=== PATIENT | male | born 1980 | race Caucasian/White ===

== ENCOUNTER 2017-10-31 12:49 | Inpatient (IN) | payer SELFPAY ==
[2017-10-31 14:00] LABS: Hemoglobin 13.8 g/dL (14.0-18.0); Mean Corpuscular HGB CONC 33.5 g/dL (32.0-36.0); Mean Corpuscular Hemoglobin 29.4 pg (27.0-31.0); Mean Corpuscular Volume 87.9 fL (78.0-98.0); Mean Platelet Volume 9.8 fL (7.4-10.4); Platelet Count 177 thou/uL (130-400); RBC Distribution Width 12.7 % (11.5-14.5); Red Blood Cell (RBC) Count 4.69 mill/uL (4.70-6.10); White Blood Cell (WBC) Count 13.5 thou/uL (4.8-10.8)
[2017-10-31] MEDS ORDERED: Ondansetron HCl/PF 4 MG/2 ML Vial ONE (14:18)
[2017-10-31] MEDS ORDERED: cefTRIAXone\\ROCEPHIN 2 GM VIAL ONE (14:18)
[2017-10-31] MEDS ORDERED: Morphine 4 MG/ML VIAL ONE (14:19)
[2017-10-31 14:22] LABS: Band 30 % (5-11); Dohle Bodies SLIGHT; Lymphocytes 3 % (21-51); MDiff Complete? YES; Metamyelocyte 2 % (0-0); Monocytes 1 % (0-10); Neutrophil 61 % (42-75); PLT Morphology Comment Appears Adequate; RBC Morphology Normal; Reactive Lymphocytes 1 % (0-10); Vacuoles SLIGHT
[2017-10-31 14:23] LABS: ALT (SGPT) 24 U/L (8-55); AST (SGOT) 53 U/L (5-34); Albumin 3.6 g/dL (3.5-5.0); Alkaline Phosphatase 61 U/L (40-150); Anion Gap 17 mmol/L (10-20); BUN (Urea Nitrogen) 19 mg/dL (8.9-20.6); Bilirubin, Total 0.7 mg/dL (0.2-1.2); CK (CPK) 713 U/L (30-200); Calc. Creatinine Clearance 0 mL/min (70-130); Carbon Dioxide 24 mmol/L (22-29); Chloride 89 mmol/L (98-107); Estimated GFR-MDRD 72; Globulin 3.5 g/dL (2.4-3.5); Glucose 112 mg/dL (70-105); Potassium 3.6 mmol/L (3.5-5.1); Protein, Total 7.1 g/dL (6.0-8.3); Sodium 126 mmol/L (136-145)
[2017-10-31] MEDS ORDERED: Nitroglycerin 2% Ointment 1 INCH/1 GM Packet ONE (14:23)
[2017-10-31] MEDS ORDERED: Nitroglycerin 0.4 MG TAB (25 Tab Bottle) ONE (14:23)
[2017-10-31 14:45] LABS: CKMB 1.7 ng/mL (0-6.6); Troponin I 0.035 ng/mL (< 0.028)
[2017-10-31 15:03] LABS: Bilirubin Small (Negative); Blood, Urine Large (Negative); Clarity CLOUDY (Clear); Glucose, Urine (Dipstick) Negative (Negative); Leukocyte Negative (Negative); Nitrite Negative (Negative); Protein, Urine (Dipstick) 300 mg/dL (Neg-Trace); Specific Gravity, Urine 1.023 (1.002-1.036)
[2017-10-31 15:05] LABS: Bacteria/HPF None Seen HPF (None Seen)
[2017-10-31 15:07] LABS: Pathc Cast-AUWi Flag 6.25 (0-2.49)
[2017-10-31 15:18] LABS: Hyaline Casts/LPF 0-3 HYALINE CAST LPF (0-3 Hyaline); Other Casts/LPF None Seen LPF (0-3 Hyaline); Transitional Epithelial 0-3 HPF (0-3)
[2017-10-31] MEDS ORDERED: Senokot 8.6 MG TAB PO PRN (15:45)
[2017-10-31] MEDS ORDERED: Acetaminophen 325 MG TAB PO PRN (15:45)
[2017-10-31] MEDS ORDERED: Guaifenesin DM 100-10/5 ML UDCUP PO PRN (15:45)
[2017-10-31] MEDS ORDERED: Azithromycin 500 MG VIAL ONE (15:45)
[2017-10-31 15:47] LABS: Amphetamine Not Detected (NotDetected); Barbiturates Screen Not Detected (NotDetected); Benzodiazepine Screen Not Detected (NotDetected); Cocaine Metabolite Screen Not Detected (NotDetected); Medtox Control Line Valid? VALID (VALID); Medtox Reader # READER 4; Methadone Not Detected (NotDetected); Methamphetamine Not Detected (NotDetected); Opiate Screen Detected (NotDetected); Oxycodone Screen Not Detected (NotDetected); Phencyclidine (PCP) Not Detected (NotDetected); THC/Cannabinoid Screen Detected (NotDetected); Tricyclic Screen Not Detected (NotDetected)
[2017-10-31] MEDS: Sodium Chloride 0.9% 1,000 ML IV SCH (17:23)
[2017-10-31 17:37] LABS: Troponin I 0.038 ng/mL (< 0.028)
--- NOTE | 2017-10-31 18:06 | RAD ---
TWO VIEWS OF THE CHEST: COMPARISON: None. HISTORY: Cough for 4 days and dyspnea. FINDINGS: Two views of the chest show consolidation in the left lower lobe consistent with left lower lobe pneu monia. No pleural effusion is seen. IMPRESSION: Left lower lobe pneumonia. POS: [facility]
[2017-10-31] MEDS ORDERED: Morphine 4 MG/ML VIAL SLOW IVP PRN (18:45)
--- NOTE | 2017-10-31 19:57 | HP ---
REASON FOR ADMISSION: Sepsis, left lung pneumonia. HISTORY OF PRESENT ILLNESS: The patient gives history of not feeling well from the last 4 days. He has also been having intractable vomiting from last 3 days and has not been able to keep anything michelle n. He felt very drained out and could not even get up this afternoon. His father finally brought gayle messina to the emergency room. The patient has been thinking he has had flu and was taking Tylenol cold an d flu tablets. He has had dry cough, but no expectoration. The patient started to have left-sided c hest pain which was worse with coughing spells. He had a temperature of 104 at home. PAST MEDICAL/SURGICAL HISTORY: Has had right wrist reconstructive surgery done. CURRENT MEDICATIONS: None. ALLERGIES: IODINE, SHELLFISH. PERSONAL HISTORY: Smokes one pack a day and has been doing so for the last 15 years. Occasional trevor gold, does not abuse alcohol. 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 FAMILY HISTORY: The patient was adopted and is not in touch with his biological mom. He does not kn ow about his biological father. CODE STATUS: FULL. REVIEW OF SYSTEMS: The following complete review of systems was negative, unless otherwise mentioned in the HPI or below: Constitutional: Weight loss or gain, ability to conduct usual activities. Sk in: Rash, itching. Eyes: Double vision, pain. ENT/Mouth: Nose bleeding, neck stiffness, pain, te nderness. Cardiovascular: Palpitations, dyspnea on exertion, orthopnea. Respiratory: Shortness of breath, wheezing, cough, hemoptysis, fever or night sweats. Gastrointestinal: Poor appetite, abdom inal pain, heartburn, nausea, vomiting, constipation, or diarrhea. Genitourinary: Urgency, frequenc y, dysuria, nocturia. Musculoskeletal: Pain, swelling. Neurologic/Psychiatric: Anxiety, depressio n. Allergy/Immunologic: Skin rash, bleeding tendency. PHYSICAL EXAMINATION: GENERAL: The patient is a 36-year-old male who is currently not in any acute distress. VITAL SIGNS: Blood pressure 118/70, pulse 120 per minute, respiratory rate is 22 per minute, tempera ture 99.3 degrees Fahrenheit, saturating 96% on room air. NECK: Supple, no elevated JVD. HEENT: Extraocular muscles intact. Pupils reacting to light. Oral cavity mucous membranes are dry. No exudates or congestion. CARDIOVASCULAR: S1, S2 heard. Regular rhythm. RESPIRATORY: Air entry 1+ bilateral. Scattered rales in the infrascapular area on the left. No whe ezes. ABDOMEN: Soft, bowel sounds heard. No tenderness, rigidity or guarding. EXTREMITIES: No peripheral edema or calf tenderness. VASCULAR SYSTEM: Peripheral pulses 1+ bilateral, no ischemic ulcerations or gangrene. CENTRAL NERVOUS SYSTEM: No gross focal deficits noted. Patient is alert, awake, oriented well. PSYCHIATRIC: The patient's mood is a bit anxious. No hallucinations or delusions. LABORATORY AND X-RAY FINDINGS: Chest x-ray done shows left lung pneumonia by my review. UA shows la rge blood, likely due to rhabdomyolysis. CK levels are 713. Troponin I 0.03, CK-MB 1.7, sodium 126, chloride 89, BUN 19, creatinine 1.1. Lactic acid is 2. White count of 13, H and H 13 and 41. Seru m glucose is 112. AST 53, ALT 24, alkaline phosphatase 61, total bilirubin is 0.7. EKG done shows s inus tachycardia at 109 beats per minute, nonspecific ST-T wave changes. There is incomplete RBBB se en. CLINICAL IMPRESSION AND PLAN: The patient will be admitted to telemetry for sepsis, left lung pneumo nuha, demand ischemia and hyponatremia likely due to moderate dehydration. The patient will be on nor mal saline at 100 mL per hour. He will be on Levaquin 750 mg IV daily. Blood and sputum cultures wi ll be obtained. He will be on a small dose of aspirin as a precaution. Likely his indeterminate tro ponin is due to his demand ischemia from left lung pneumonia. Echo with 2D Doppler will be obtained for left ventricular function.
--- NOTE | 2017-10-31 20:11 | CON ---
DATE OF CONSULTATION: 10/31/2017 REASON FOR CONSULTATION: Abnormal EKG and chest pain. HISTORY OF PRESENT ILLNESS: Mr. Boo is a 36-year-old gentleman, who recently presented with a f ever of 104, cough and chest pain. Chest pain began on . It has been fairly constant and wo rse with deep breath. It is also worse with cough. It is dull in nature. He was found to have cons olidation on chest x-ray consistent with pneumonia. He had a right bundle branch block with ST segme nt elevation noted in V3 only. No reciprocal changes present. I was consulted for questionable acut e myocardial infarction. PAST MEDICAL HISTORY: None. MEDICATIONS: None. ALLERGIES: None. SOCIAL HISTORY: Positive tobacco use. REVIEW OF SYSTEMS: Ten- point review of systems is reviewed and as above, otherwise negative. PHYSICAL EXAMINATION: GENERAL: Patient is a pleasant male who is in no acute distress. The patient appears his stated age . VITAL SIGNS: Blood pressure 110/70, pulse 98, respirations 20. NEUROLOGIC: The patient is alert and oriented times 3 with no focal neurologic deficits. HEENT: Sclerae without icterus. Mouth has moist mucous membranes with normal pallor. NECK: No JVD. Carotid upstroke brisk. No bruits bilaterally. LUNGS: Clear to auscultation with unlabored respirations. BACK: No scoliosis or kyphosis. CARDIAC: Regular rate and rhythm with normal S1 and S2. No S3 or S4 noted. No significant rubs, mu rmurs, thrills, or gallops noted throughout the precordium. PMI is not displaced. There is no corina ternal heave. ABDOMEN: Soft, nontender, nondistended. No peritoneal signs present. No hepatosplenomegaly. No ab normal striae. EXTREMITIES: 2+ femoral and 2+ dorsalis pedis pulses. No cyanosis, clubbing, or edema. SKIN: No gross abnormalities. IMAGING: EKG shows normal sinus rhythm with right bundle branch block and ST segment elevation consistent with acute myocardial infarction. LABORATORY DATA: Troponin 0.035 with a negative MB. IMPRESSION: 1. Chest pain. 2. Abnormal EKG. 3. Pneumonia. RECOMMENDATIONS: Mr. Boo's symptoms are suggestive of pleuritic pain from recent pneumonia. Hi s EKG is not consistent with acute myocardial infarction. We would recommend antibiotic therapy. At this point, we would recommend transfer to medical. No further recommendation from a CV standpoint.
[2017-10-31 20:17] LABS: Troponin I 0.082 ng/mL (< 0.028)
[2017-10-31] MEDS: Famotidine 20 MG TAB PO SCH (20:56)
[2017-11-01 02:59] LABS: Legionella Urinary Ag POSITIVE (Negative); Strep pneumo Urine Ag NEGATIVE (NEGATIVE)
[2017-11-01] MEDS: Sodium Chloride 0.9% 1,000 ML IV SCH ×2 (05:27→18:55)
[2017-11-01 05:48] LABS: Anion Gap 13 mmol/L (10-20); BUN (Urea Nitrogen) 15 mg/dL (8.9-20.6); Calc. Creatinine Clearance 78 mL/min (70-130); Calcium 8.4 mg/dL (7.8-10.44); Carbon Dioxide 23 mmol/L (22-29); Chloride 92 mmol/L (98-107); Estimated GFR-MDRD 85; Glucose 101 mg/dL (70-105); Potassium 3.4 mmol/L (3.5-5.1); Sodium 125 mmol/L (136-145)
[2017-11-01 06:26] LABS: Band 16 % (5-11); Hypochromia SLIGHT = 6-15 cells (100X) (0-5/hpf); Lymphocytes 5 % (21-51); MDiff Complete? YES; Mean Corpuscular HGB CONC 32.7 g/dL (32.0-36.0); Mean Corpuscular Hemoglobin 28.8 pg (27.0-31.0); Mean Corpuscular Volume 88.1 fL (78.0-98.0); Mean Platelet Volume 9.5 fL (7.4-10.4); Monocytes 1 % (0-10); Neutrophil 78 % (42-75); PLT Morphology Comment Appears Adequate; Platelet Count 188 thou/uL (130-400); RBC Distribution Width 12.6 % (11.5-14.5); Red Blood Cell (RBC) Count 4.15 mill/uL (4.70-6.10); White Blood Cell (WBC) Count 11.5 thou/uL (4.8-10.8)
[2017-11-01 08:11] LABS: HIV (1/2) Antibody/Antigen Non-Reactive (NonReactive); HIV 1/2 INDEX 0.05 S/CO (<1.00)
--- NOTE | 2017-11-01 09:03 | CT ---
CT OF THE THORAX WITHOUT IV CONTRAST: INDICATION: Flu-like symptoms and cough. COMPARISON: Chest radiograph dated 10/31/17. FINDINGS: There is marked consolidation of the left lower lobe. There are patchy airspace opacities within both upper lobes as well as portions of the lingula and ri ght middle lobe. No pneumothorax is evident. Lack of IV contrast limits evaluation for adenopathy. Visualized upper abdomen is unremarkable. No definite acute osseous abnormality is evident. IMPRESSION: Findings of multifocal pneumonia. Recommend radiographic followup to resolution. POS: [facility]
[2017-11-01] MEDS: Famotidine 20 MG TAB PO SCH ×2 (09:08→21:03)
[2017-11-01] MEDS: Enoxaparin Sodium 40 MG/0.4 ML SYRINGE SC SCH (09:08)
[2017-11-01 10:03] VITALS: BMI 17.4
--- NOTE | 2017-11-01 10:07 | PDOC.PN ---
- Subjective Encounter Start Date: 11/01/17 Encounter Start Time: 08:45 Subjective: breathing better -: no chest pain or palp - Objective Resuscitation Status: Resuscitation Status FULL:Full Resuscitation MAR Reviewed: Yes Vital Signs & Weight: Vital Signs (12 hours) Temp Pulse Resp BP Pulse Ox 11/01/17 08:00 100.0 F H 105 H 18 108/62 95 11/01/17 06:35 123 H 18 96 11/01/17 05:47 97 11/01/17 04:00 99.3 F 112 H 23 H 112/60 94 L 10/31/17 23:13 98 Weight Admit Weight 126 lb 3.2 oz Weight 118 lb I&O: 10/31/17 11/01/17 11/02/17 06:59 06:59 06:59 Intake Total 1666 Output Total 500 Balance 1166 Result Diagrams: 11/01/17 05:09 11/01/17 05:09 Phys Exam - Physical Examination HEENT: PERRLA, moist MMs Neck: no JVD, supple Respiratory: no wheezing rales+ Cardiovascular: RRR, no significant murmur Gastrointestinal: soft, no distention, positive bowel sounds Musculoskeletal: no edema, pulses present Neurological: non-focal, moves all 4 limbs Psychiatric: normal affect, A&O x 3 Dx/Plan (1) PNA (pneumonia) Code(s): J18.9 - PNEUMONIA, UNSPECIFIED ORGANISM Status: Acute Comment: sec to legionella (2) Sepsis Code(s): A41.9 - SEPSIS, UNSPECIFIED ORGANISM Status: Acute (3) Demand ischemia of myocardium Code(s): I24.8 - OTHER FORMS OF ACUTE ISCHEMIC HEART DISEASE Status: Acute (4) Hyponatremia Code(s): E87.1 - HYPO-OSMOLALITY AND HYPONATREMIA Status: Acute (5) Tobacco abuse Code(s): Z72.0 - TOBACCO USE Status: Chronic - Plan is on levaquin, nebs -: will add steroids if work of breathing increases -: aspirin, 2nd liter of iv fluid is running and dc after that -: may tx to medical floor -: echo * . Review of Systems - Medications/Allergies Allergies/Adverse Reactions: Allergies Allergy/AdvReac Type Severity Reaction Status Date / Time iodine Allergy Verified 10/31/17 18:29 Medications: Current Medications Acetaminophen (Tylenol) 650 mg PO Q4H PRN PRN Reason: Headache/Fever or Pain Albuterol/Ipratropium (Duoneb) 3 ml NEB [id number] [facility] Last Admin: 11/01/17 06:35 Dose: 3 ml Aspirin (Aspirin Chewable) 81 mg PO DAILY [facility] Last Admin: 11/01/17 09:04 Dose: 81 mg Enoxaparin Sodium (Lovenox) 40 mg SC 0900 [facility] Last Admin: 11/01/17 09:08 Dose: 40 mg Famotidine (Pepcid) 20 mg PO BID [facility] Last Admin: 11/01/17 09:08 Dose: 20 mg Guaifenesin/Dextromethorphan (Robitussin Dm) 15 ml PO Q4H PRN PRN Reason: Cough Levofloxacin 750 mg/ Device 150 mls @ 100 mls/hr IVPB 1630 [facility] Last Admin: 10/31/17 17:23 Dose: 150 mls Sodium Chloride (Normal Saline 0.9%) 1,000 mls @ 100 mls/hr IV .Q10H [facility] Stop: 11/01/17 21:44 Last Admin: 11/01/17 05:27 Dose: 1,000 mls Morphine Sulfate (Morphine) 2 mg SLOW IVP Q6H PRN PRN Reason: Moderate to Severe Pain (6-10) Last Admin: 10/31/17 19:02 Dose: 2 mg Senna (Senokot) 2 tab PO HSPRN PRN PRN Reason: Constipation Sodium Chloride (Flush - Normal Saline) 10 ml IVF Q12HR [facility] Last Admin: 11/01/17 09:09 Dose: Not Given Sodium Chloride (Flush - Normal Saline) 10 ml IVF PRN PRN PRN Reason: Saline Flush
[2017-11-01] MEDS ORDERED: Melatonin 3 MG TAB PO PRN (20:05)
--- NOTE | 2017-11-01 21:48 | CON ---
DATE OF CONSULTATION: 11/01/2017 HISTORY OF PRESENT ILLNESS: Mr. Boo is 36-year-old male who started feeling poorly, thinking he had the flu last week. Apparently, he has been losing weight, having vomiting as well. He subsequently was brought to the emergency room by his father. He was admitted after chest radiograph was found to be abnormal. It has been healthy prior to this. He has a history of an orthopedic surgery on his right wrist. SOCIAL HISTORY: He is pack a day smoker, says he infrequently uses marijuana. ALLERGIES: Reports IODINE allergies. FAMILY HISTORY: Unknown. He is adopted. REVIEW OF SYSTEMS: Ten-point, otherwise negative. PHYSICAL EXAMINATION: GENERAL: He says he is feeling much better. VITAL SIGNS: His temperature is 100, heart rate 105, respiratory rate is 18, oximetry is 95 on 3 lit ers, blood pressure 108/62. LUNGS: Remarkable for tubular breath sounds over his left posterior hemithorax. HEAD AND NECK: Exam is otherwise unremarkable. HEART: Regular rhythm, no S3. ABDOMEN: Soft and nontender. EXTREMITIES: Without clubbing, cyanosis, or edema. LABORATORY DATA: Blood cultures are negative. White count 11.5, hemoglobin 12.0. He has 16% bands today, 30% bands yesterday. He had a legionella positive antigen in his urine. IMPRESSION: Pneumonia? possibly legionella. PLAN: Continue with high dose Levaquin, increase his activity. I will be happy to follow with the o ther physician's caring for him. I reviewed his chest radiograph. He does have patchy bilateral inf iltrates consistent with an atypical pneumonia. He had a chest CT done that really did not add much to this.
[2017-11-02 07:53] VITALS: TEMP 98.9
[2017-11-02] MEDS: Famotidine 20 MG TAB PO SCH (08:58)
[2017-11-02] MEDS: Enoxaparin Sodium 40 MG/0.4 ML SYRINGE SC SCH (08:58)
--- NOTE | 2017-11-02 12:06 | PDOC.PN ---
- Subjective Encounter Start Date: 11/02/17 Encounter Start Time: 07:00 Subjective: is ambulating and eating -: has dry cough no sputum production -: feels better - Objective Resuscitation Status: Resuscitation Status FULL:Full Resuscitation MAR Reviewed: Yes Vital Signs & Weight: Vital Signs (12 hours) Temp Pulse Resp BP BP Pulse Ox 11/02/17 08:50 96 11/02/17 07:50 98.9 F 106 H 20 119/79 96 11/02/17 06:57 101 H 18 95 11/02/17 03:58 98.6 F 101 H 16 109/68 93 L Weight Admit Weight 126 lb 3.2 oz Weight 118 lb I&O: 11/01/17 11/02/17 11/03/17 06:59 06:59 06:59 Intake Total 1666 240 Output Total 500 Balance 1166 240 Result Diagrams: 11/01/17 05:09 11/01/17 05:09 Phys Exam - Physical Examination HEENT: PERRLA, moist MMs Neck: no JVD, supple Respiratory: no wheezing, no rales rhonchi+ Cardiovascular: RRR, no significant murmur Gastrointestinal: soft, non-tender, positive bowel sounds Musculoskeletal: no edema, pulses present Neurological: non-focal, moves all 4 limbs Psychiatric: normal affect, A&O x 3 Dx/Plan (1) PNA (pneumonia) Code(s): J18.9 - PNEUMONIA, UNSPECIFIED ORGANISM Status: Acute Comment: sec to legionella (2) Sepsis Code(s): A41.9 - SEPSIS, UNSPECIFIED ORGANISM Status: Acute (3) Demand ischemia of myocardium Code(s): I24.8 - OTHER FORMS OF ACUTE ISCHEMIC HEART DISEASE Status: Resolved (4) Hyponatremia Code(s): E87.1 - HYPO-OSMOLALITY AND HYPONATREMIA Status: Acute (5) Tobacco abuse Code(s): Z72.0 - TOBACCO USE Status: Chronic - Plan hemostable -: continue levaquin, nebs -: dc plan per 's advice -: has recovered well so far * . Review of Systems - Medications/Allergies Allergies/Adverse Reactions: Allergies Allergy/AdvReac Type Severity Reaction Status Date / Time iodine Allergy Verified 10/31/17 18:29 Medications: Current Medications Acetaminophen (Tylenol) 650 mg PO Q4H PRN PRN Reason: Headache/Fever or Pain Albuterol/Ipratropium (Duoneb) 3 ml NEB [id number] [facility] Last Admin: 11/02/17 06:57 Dose: 3 ml Aspirin (Aspirin Chewable) 81 mg PO DAILY [facility] Last Admin: 11/02/17 08:58 Dose: 81 mg Enoxaparin Sodium (Lovenox) 40 mg SC 0900 [facility] Last Admin: 11/02/17 08:58 Dose: 40 mg Famotidine (Pepcid) 20 mg PO BID [facility] Last Admin: 11/02/17 08:58 Dose: 20 mg Guaifenesin/Dextromethorphan (Robitussin Dm) 15 ml PO Q4H PRN PRN Reason: Cough Levofloxacin 750 mg/ Device 150 mls @ 100 mls/hr IVPB 1630 [facility] Last Admin: 11/01/17 16:13 Dose: 150 mls Melatonin (Melatonin) 3 mg PO HS PRN PRN Reason: Insomnia Last Admin: 11/01/17 21:03 Dose: 3 mg Morphine Sulfate (Morphine) 2 mg SLOW IVP Q6H PRN PRN Reason: Moderate to Severe Pain (6-10) Last Admin: 10/31/17 19:02 Dose: 2 mg Senna (Senokot) 2 tab PO HSPRN PRN PRN Reason: Constipation Sodium Chloride (Flush - Normal Saline) 10 ml IVF Q12HR [facility] Last Admin: 11/02/17 08:58 Dose: 10 ml Sodium Chloride (Flush - Normal Saline) 10 ml IVF PRN PRN PRN Reason: Saline Flush
--- NOTE | 2017-11-02 13:26 | PRG ---
DATE OF SERVICE: 11/02/2017 Declan Boo says he feels great. He actually woke up and cleaned up his room this morning. PHYSICAL EXAMINATION: VITAL SIGNS: He is afebrile, heart rate is 101, respiratory rate is 18, oximetry is 95 on room air, blood pressure 119/79. LUNGS: Lungs are clear. LABORATORY DATA: There is no new lab today. IMPRESSION: 1. Pneumonia, likely Legionella given a positive urinary antigen. He says he has an old shower head in his rental home that he has tried to change out and had not been able to, that in theory could be a source. It is reasonable for him to go home given his stability. He will take 750 mg a day of Levaquin for 2 weeks. 2. Hyponatremia, most likely associated with his pneumonia. Fluid restriction would be the treatment of choice. He really should have lab done with his primary care physician within the next week. I doubt he is hypothyroid. I doubt he has adrenal insufficiency. I will see him in a month for a chest radiograph. KVNG
[2017-11-02 14:12] VITALS: BP 119/78
--- NOTE | 2017-11-02 22:03 | DIS ---
DATE OF ADMISSION: 10/31/2017 DATE OF DISCHARGE: 11/02/2017 DISCHARGE DISPOSITION: To home. PRIMARY DISCHARGE DIAGNOSES: Sepsis, Legionella pneumonia, resolving; demand ischemia due to above; hyponatremia secondary to pneumonia; tobacco abuse. PROCEDURES DONE DURING HOSPITALIZATION: Patient has had CT chest done which showed multifocal pneumo nuha. Blood cultures x2 no growth. Had a white count of 13 with 30% bands on the day of admission. Discharge white count is 11. Initial sodium 126, BUN 19, creatinine 1.1, troponin I was indeterminat e peaking up to 0.08, CK-MB 1.7. Urine for legionella antigen was positive. HIV 1 and 2 nonreactive . DISCHARGE MEDICATIONS: Levaquin 750 mg p.o. daily for another 2 weeks, albuterol inhaler and nebuliz er. ALLERGIES: IODINE. INPATIENT CONSULTS: Dr. Ortiz for Pulmonology. BRIEF COURSE DURING HOSPITALIZATION: Patient initially came in with complaints of fever and not feel ing well. He also had severe vomiting from last 3 days with loss of appetite as well. On arrival, t he patient was found to have had left lung pneumonia with sepsis. The patient had indeterminate trop onin, likely demand ischemia from pneumonia and sepsis. He was initially admitted to telemetry and l ater downgraded to medical floor. He was on Levaquin along with nebulizers and aspirin during his st ay here. He has had consultation with Dr. Ortiz for Pulmonology. The patient will follow up with Dr Joann Ortiz in 3 weeks with a follow up chest x-ray to see for complete resolution. He was counseled wit h regard to smoking cessation. He is hemodynamically stable and has been cleared for discharge today by Dr. Ortiz. Please see a [id number] documentation for the day of discharge.
== END 2017-11-02 14:11 | disposition home or self-care (01) | DRG 871 ==
LOC: ERS 12:49 → 2NO 15:45 → T4-B 11-01 11:40
PROVIDERS: ADMIT Internal Medicine; ATTEND Internal Medicine
DX: A41.9 Sepsis, unspecified organism (principal); A48.1 Legionnaires' disease; I24.8 Other forms of acute ischemic heart disease; E87.1 Hypo-osmolality and hyponatremia; F17.210 Nicotine dependence, cigarettes, uncomplicated; E86.0 Dehydration; Z91.013 Allergy to seafood
CPT/HCPCS: 36415; 71046; 71250; 80048; 80053; 80306; 81003; 81015; 82550; 82553; 83605; 84484; 85025; 87040; 87070; 87205; 87389; 87899; 93005; 93306; 94640; 94760; 96365; 96367; 96375; A4216; J0456; J0696; J1650; J1956; J2270; J2405; J7620

== ENCOUNTER 2017-12-02 08:00 | Outpatient (CLI) | payer OTHER ==
--- NOTE | 2017-12-02 15:36 | RAD ---
TWO VIEW CHEST: History: Dyspnea. Comparison: 11-01-17. That exam revealed dense consolidation of the left lower lobe. FINDINGS: There is evidence of significant improvement in the left lower lobe consolidation when compared to th e previous CT. There is some residual density in the left lower lobe, probably representing some resi dual changes from the previously noted dense consolidation. The left upper lung and the right lung appear clear. Heart and mediastinum unremarkable. IMPRESSION: Significant improvement when compared to CT of 11-01-17. Some residual infiltrate or atelectasis in th e left lower lobe is noted. POS: [facility]
== END 2017-12-02 08:01 | disposition home or self-care (01) ==
LOC: RAD 08:00
PROVIDERS: ATTEND Internal Medicine Critical Care Medicine
DX: R06.00 Dyspnea, unspecified (principal)
CPT/HCPCS: 71046